=== PATIENT | male | born 1955 | race Caucasian/White ===

== ENCOUNTER 2016-08-19 06:45 | Day surgery (SDC) | payer MEDICARE, OTHER ==
[2016-08-17 09:20] VITALS: BMI 36.2
[~2016-08-19 06:45] MED LIST: LACTATED RINGERS 1,000 ML IV SCH; LIDOCAINE 1% 20 ML VIAL (10MG/ML) FOR IV START INTRADERMA PRN
[2016-08-19 07:09] VITALS: TEMP 97.4
[2016-08-19] MEDS ORDERED: LACTATED RINGERS 1,000 ML IV ONE (07:09)
[2016-08-19 07:21] LABS: Glucose,Whole Blood 120 mg/dL (75-99)
[2016-08-19] MEDS ORDERED: PROPOFOL 10 MG/ML 20 ML VIAL IV ONE (07:31)
--- NOTE | 2016-08-19 07:36 | P.GSHP ---
History of Present Illness H&P Date: 08/19/16 CHIEF COMPLAINT: Colon screen HISTORY OF PRESENT ILLNESS: The patient is a 61-year-old male who presents for colon screen. Lower endoscopy was offered for further evaluation and management. PAST MEDICAL HISTORY: Please see list. PAST SURGICAL HISTORY: Please see list. MEDICATIONS: Please see list. ALLERGIES: Please see list. SOCIAL HISTORY: No illicit drug use FAMILY HISTORY: No reports of Crohn disease or ulcerative colitis. REVIEW OF ORGAN SYSTEMS: CONSTITUTIONAL: No reports of fevers or chills. PHYSICAL EXAM: VITAL SIGNS: Stable GENERAL: Well-developed pleasant in no acute distress. HEENT: No scleral icterus. Extraocular movements grossly intact. Moist buccal mucosa. NECK: Supple without lymphadenopathy. CHEST: Unlabored respirations. Equal bilateral excursions. CARDIOVASCULAR: Regular rate and rhythm. Distal 2+ pulses. ABDOMEN: Soft, nontender, nondistended. MUSCULOSKELETAL: No clubbing, cyanosis, or edema. ASSESSMENT: 1. Colon screen. PLAN: 1. Recommend proceeding with a lower endoscopy Past Medical History Past Medical History: Cancer, Diabetes Mellitus Additional Past Medical History / Comment(s): states "blood sugars run between 120-130,was taking medx prior to gastric bypass-wt was 525lbs","low iron", prostate CA History of Any Multi-Drug Resistant Organisms: None Reported Past Surgical History: Bariatric Surgery, Cholecystectomy, Hernia Repair, Prostate Surgery Additional Past Surgical History / Comment(s): prostactectomy,gastric bypass, "tummy tuck",hernia repair lower abdomen Past Anesthesia/Blood Transfusion Reactions: No Reported Reaction Additional Past Anesthesia/Blood Transfusion Reaction / Comment(s): no hx blood transfusion. Past Psychological History: No Psychological Hx Reported Smoking Status: Never smoker Past Alcohol Use History: None Reported Past Drug Use History: Marijuana Additional Drug Use History / Comment(s): uses marijuana approx 3 times per week - Past Family History Mother Family Medical History: Congestive Heart Failure (CHF) Father Family Medical History: Myocardial Infarction ([place]) Additional Family Medical History / Comment(s): alcoholism Medications and Allergies Home Medications Medication Instructions Recorded Confirmed Type Cholecalciferol [Vitamin D3] 2,000 unit PO DAILY 08/17/16 08/19/16 History Cyanocobalamin [Vitamin B-12] 1,000 mcg PO DAILY 08/17/16 08/19/16 History Ferrous Sulfate [Feosol] 325 mg PO DAILY 08/17/16 08/19/16 History Multivitamins, Thera [Multivitamin 1 tab PO DAILY 08/17/16 08/19/16 History (formulary)] Allergies Allergy/AdvReac Type Severity Reaction Status Date / Time sulfamethoxazole Allergy Unknown Verified 08/19/16 07:03 [From Bactrim] trimethoprim [From Bactrim] Allergy Unknown Verified 08/19/16 07:03 Surgical - Exam Vital Signs Temp Pulse Resp BP Pulse Ox 97.4 F L 56 L 16 151/89 98 08/19/16 07:05 08/19/16 07:05 08/19/16 07:05 08/19/16 07:05 08/19/16 07:05 Results - Labs Abnormal Lab Results - Last 24 Hours (Table) 08/19/16 Range/Units 07:10 POC Glucose (mg/dL) 120 H (75-99) mg/dL
--- NOTE | 2016-08-19 07:53 | P.PCN ---
Date of Procedure: 08/19/16 Description of Procedure: PREOPERATIVE DIAGNOSIS: Colonoscopy screening. POSTOPERATIVE DIAGNOSIS: Colonoscopy screening. OPERATION: Colonoscopy to the ileocecal valve and appendiceal orifice. SURGEON: Yris Bell MD. ANESTHESIA: MAC. INDICATIONS: The patient is a 61-year-old male who presents for his first colonoscopy screening. Benefits and risks were described and informed consent was obtained. DESCRIPTION OF PROCEDURE: The patient had undergone Gatorade, MiraLAX and Dulcolax prep. He had been brought into the operating room and laid in the left lateral decubitus position. After adequate intravenous sedation, the rectum was examined with 2% lidocaine jelly. No external hemorrhoids were encountered. The rectal tone was within normal limits. No lesions were palpated in the rectal vault. An Olympus colonoscope was advanced until the ileocecal valve and appendiceal orifice were clearly viewed. The prep was excellent with clear visualization of the mucosal folds. The scope was removed with visualization of each mucosal fold. No scattered diverticulosis was encountered. No colonic polyps were found. No evidence of focal colitis was found. Retroflexion of the scope demonstrated grade 1 internal hemorrhoids without active bleeding or inflammation. The colon was desufflated. The patient had tolerated the procedure well. Withdrawal time was over 6 minutes. FINDINGS: Internal hemorrhoids, grade 1 No external prolapsed hemorrhoids. No arteriovenous malformations. No adenomatous polyps. No focal colitis. RECOMMENDATIONS: Lower endoscopy in 10 years, 2026 per screening guidelines; however down to 5 years with family history of colon polyps or cancer. Plan - Discharge Summary Discharge Medication List Cholecalciferol [Vitamin D3] 2,000 unit PO DAILY 08/17/16 [History] Cyanocobalamin [Vitamin B-12] 1,000 mcg PO DAILY 08/17/16 [History] Ferrous Sulfate [Feosol] 325 mg PO DAILY 08/17/16 [History] Multivitamins, Thera [Multivitamin (formulary)] 1 tab PO DAILY 08/17/16 [History ]
[2016-08-19 08:15] VITALS: PULSE 50; RESP 18
[2016-08-19 08:33] VITALS: BP 128/85
== END 2016-08-19 08:45 | disposition home or self-care (01) ==
LOC: ORWHC2ENDO 06:45
PROVIDERS: ATTEND Surgery Plastic and Reconstructive Surgery
DX: Z12.11 Encounter for screening for malignant neoplasm of colon (principal); K64.0 First degree hemorrhoids; E11.9 Type 2 diabetes mellitus without complications; Z98.84 Bariatric surgery status; Z85.46 Personal history of malignant neoplasm of prostate; Z79.899 Other long term (current) drug therapy; Z88.1 Allergy status to other antibiotic agents; Z88.2 Allergy status to sulfonamides
CPT/HCPCS: J2704; G0121

== ENCOUNTER 2017-04-24 13:43 | Emergency (ER) | payer MEDICARE, OTHER ==
--- NOTE | 2017-04-24 15:21 | ED ---
Eye Problem HPI - General Chief complaint: Eye Problems Stated complaint: Blurred vision Time Seen by Provider: 04/24/17 14:08 Source: patient Mode of arrival: ambulatory Limitations: no limitations - History of Present Illness Initial comments: 62-year-old male patient presents to the emergency department today for evaluation of floaters to the right eye, right-sided facial numbness, and sinus congestion. He states in addition to the floater he feels like his vision is blurred on the right. States that he also has decreased hearing to the right ear with this. Patient states he has had these symptoms for the past 8-9 days. States that he was treated with amoxicillin for sinus infection however he is not feeling any better. He denies any unilateral weakness. Denies any numbness or tingling to his limbs. States he does have some occasional dizziness. States that he does have pain behind the right eye, and a mild headache. He denies any fevers or chills with this. Denies any nausea or vomiting. Denies any chest pain or shortness of breath. Patient denies any recent rash, abdominal pain, diarrhea, constipation, back pain, numbness, tingling, dizziness , weakness, hematuria, dysuria, urinary urgency, urinary frequency, or any other complaints. - Related Data Home Medications Medication Instructions Recorded Confirmed Cholecalciferol [Vitamin D3] 1,000 unit PO DAILY 08/17/16 04/24/17 Cyanocobalamin [Vitamin B-12] 1,000 mcg PO DAILY 08/17/16 04/24/17 Multivitamins, Thera [Multivitamin 1 tab PO DAILY 08/17/16 04/24/17 (formulary)] Amoxicillin 875 mg PO Q12HR 04/24/17 04/24/17 Previous Rx's Medication Instructions Recorded Amoxic-Pot Clav 875-125Mg 1 tab PO Q12HR #20 tablet 04/24/17 [Augmentin 875-125] Allergies Allergy/AdvReac Type Severity Reaction Status Date / Time sulfamethoxazole Allergy Unknown Verified 04/24/17 14:36 [From Bactrim] trimethoprim [From Bactrim] Allergy Unknown Verified 04/24/17 14:36 Review of Systems ROS Statement: Those systems with pertinent positive or pertinent negative responses have been documented in the HPI. ROS Other: All systems not noted in ROS Statement are negative. Past Medical History Past Medical History: Cancer, Diabetes Mellitus Additional Past Medical History / Comment(s): states "blood sugars run between 120-130,was taking medx prior to gastric bypass-wt was 525lbs","low iron", prostate CA History of Any Multi-Drug Resistant Organisms: None Reported Past Surgical History: Bariatric Surgery, Cholecystectomy, Hernia Repair, Prostate Surgery Additional Past Surgical History / Comment(s): prostactectomy,gastric bypass, "tummy tuck",hernia repair lower abdomen, cataract surgery Past Anesthesia/Blood Transfusion Reactions: No Reported Reaction Additional Past Anesthesia/Blood Transfusion Reaction / Comment(s): no hx blood transfusion. Past Psychological History: No Psychological Hx Reported Smoking Status: Never smoker Past Alcohol Use History: None Reported Past Drug Use History: Marijuana - Past Family History Mother Family Medical History: Congestive Heart Failure (CHF) Father Family Medical History: Myocardial Infarction ([place]) Additional Family Medical History / Comment(s): alcoholism General Exam Limitations: no limitations General appearance: alert, in no apparent distress, other (This is a well- developed, well-nourished adult male patient in no acute distress. Vital signs upon presentation are temperature 96F, pulse 64, respirations 16, blood pressure 179/81, pulse ox 96% on room air.) Eye exam: Present: normal appearance, PERRL, EOMI, other (Globes are soft and equal with no proptosis. Pupils are equal and briskly reactive. No conjunctival injection. No periorbital edema or erythema.). Absent: scleral icterus, conjunctival injection, periorbital swelling, periorbital tenderness ENT exam: Present: normal exam, normal oropharynx, mucous membranes moist, TM's normal bilaterally Respiratory exam: Present: normal lung sounds bilaterally. Absent: respiratory distress, wheezes, rales, rhonchi, stridor Cardiovascular Exam: Present: regular rate, normal rhythm, normal heart sounds. Absent: systolic murmur, diastolic murmur, rubs, gallop, clicks GI/Abdominal exam: Present: soft, normal bowel sounds. Absent: distended, tenderness, guarding, rebound, rigid Neurological exam: Present: alert, oriented X3, CN II-XII intact Expanded Speech: Present: fluid speech Cranial nerves: EOM's Intact: Normal, Tongue Deviation: Normal, Nystagmus: Normal Cerebellar function: Finger to Nose: Normal Motor strength exam: RUE: 5, LUE: 5, RLE: 5, LLE: 5 Eye Response: (4) open spontaneously Motor Response: (6) obeys commands Verbal Response: (5) oriented Jay Total: 15 Psychiatric exam: Present: normal affect, normal mood Skin exam: Present: warm, dry, intact, normal color. Absent: rash Course Vital Signs 04/24/17 04/24/17 04/24/17 13:55 15:05 17:09 Temperature 96 F L 97.6 F Pulse Rate 64 55 L 64 Respiratory 16 18 16 Rate Blood Pressure 179/81 161/91 152/106 O2 Sat by Pulse 96 95 96 Oximetry Medical Decision Making - Medical Decision Making 63-year-old male patient presented to the emergency department today with complaints of visual disturbance of the right eye and sinus congestion. Physical examination was unremarkable. Patient was neurologically intact. CT of the brain and sinuses did show a mucosal thickening consistent with the incomplete treatment of sinusitis. Dr. Chacon my attending did perform an ultrasound of the right eye at bedside which showed no evidence of retinal detachment. Patient symptoms had been present for 8 days, he denied any flashing lights or bright spots. He'll be discharged home to follow-up with his instructor bus trolley and taxi. Patient did refuse to see our instructor bus trolley and taxi. He is given a prescription for Augmentin for continuation of treatment of his sinusitis. He is instructed to return here immediately for any new, worsening, or concerning symptoms. He verbalizes understanding and agrees with this plan. - Radiology Data Radiology results: report reviewed, image reviewed CT of the sinuses was obtained without contrast, report was reviewed in its entirety. Impression by Dr. Jones shows soft tissue attenuation is identified in the floor of both maxillary sinuses left greater than the right. Findings could be related to incomplete she had a sinus infection. CT of the brain without contrast report was reviewed in its entirety. Impression by Dr. Jones shows no acute intracranial abnormality. Disposition Clinical Impression: Vitreous floaters of right eye, Sinusitis, Vitreous hemorrhage Disposition: HOME SELF-CARE Condition: Good Instructions: Sinusitis (ED), Visual Floaters (ED) Additional Instructions: Follow-up with your instructor bus trolley and taxi as soon as possible. If you cannot get in there please call the instructor bus trolley and taxi below for an appointment. Complete antibiotic prescription in full. Return here immediately for any new, worsening , or concerning symptoms. Prescriptions: Amoxic-Pot Clav 875-125Mg [Augmentin 875-125] 1 tab PO Q12HR #20 tablet Referrals: Marcelo Del Rosario DO [Primary Care Provider] - 1-2 days Time of Disposition: 17:23
--- NOTE | 2017-04-24 15:37 | CT ---
EXAMINATION TYPE: CT brain wo con DATE OF EXAM: 04/24/2017 COMPARISON: NONE HISTORY: Right eye visual disturbance x 8-10 days. Treated for sinus infection with no improvement. N umbness around right eye. CT DLP: 1085.8 mGycm Automated exposure control for dose reduction was used. FINDINGS: No acute hemorrhage or major vessel territorial infarct is identified. There is no mass, mass effect, or midline shift. Ventricles and sulci are age-appropriate. There is slight asymmetric hypodensity o f the right frontal lobe compared to the left which is felt to be artifactual. Calvarium appears inta ct. The mastoid air cells are well aerated. The external auditory canals are well aerated. There is n checo septal deviation to the left with postintervention changes identified in the wall of the left ma xillary sinus medially. IMPRESSION: NO ACUTE INTRACRANIAL ABNORMALITY IS IDENTIFIED.
--- NOTE | 2017-04-24 15:40 | CT ---
EXAMINATION TYPE: CT sinus wo con DATE OF EXAM: 04/24/2017 COMPARISON: NONE HISTORY: Right eye visual disturbance x 8-10 days. Treated for sinus infection with no improvement. N umbness around right eye. CT DLP: 453 mGycm. Automated Exposure Control for Dose Reduction was Utilized. TECHNIQUE: CT scan of the sinuses is performed without contrast, axial images are obtained, coronal r eformatted images are also reviewed. FINDINGS: Frontal sinuses are relatively well aerated. There could be a small amount of mucosal thick ening noted. There is some mucosal thickening noted in the ethmoid sinuses. There is soft tissue atte nuation identified in the inferior aspect of both maxillary sinuses. There are no air-fluid levels id entified. There is nasal septal deviation to the left. The ostiomeatal complex is patent bilaterally on the coronal images. The orbits are grossly unremarkable on this nondedicated study. Visualized portion of mastoid air cells show no abnormal opacification. The globes are intact bilate rally. IMPRESSION: Soft tissue attenuation is identified in the floor of both maxillary sinuses left greater than right. Findings could be related to incomplete treatment of sinus infection.
[2017-04-24 17:10] VITALS: BP 152/106; PULSE 64; RESP 16; TEMP 97.6
== END 2017-04-24 17:46 | disposition home or self-care (01) ==
LOC: EC 13:43
DX: H43.391 Other vitreous opacities, right eye (principal); H43.11 Vitreous hemorrhage, right eye; J32.9 Chronic sinusitis, unspecified; H55.00 Unspecified nystagmus; R40.2412 Glasgow coma scale score 13-15, at arrival to emergency department; Z79.899 Other long term (current) drug therapy; Z88.1 Allergy status to other antibiotic agents; Z85.46 Personal history of malignant neoplasm of prostate; Z90.79 Acquired absence of other genital organ(s)
CPT/HCPCS: 70450; 70486; 99283

== ENCOUNTER → 2018-01-08 | Outpatient (CLI) | payer MEDICARE, OTHER ==
[2018-01-08 09:56] LABS: HCT 44.3 % (39.0-53.0); HGB 13.3 gm/dL (13.0-17.5); Hypochromasia Slight; MCH 28.1 pg (25.0-35.0); MCV 93.6 fL (80.0-100.0); Mean Platelet Volume 7.2; Platelet Count 393 k/uL (150-450); RBC 4.74 m/uL (4.30-5.90); RDW 13.9 % (11.5-15.5)
== END | disposition home or self-care (01) ==
LOC: LABPAT 08:59
PROVIDERS: ATTEND Surgery
DX: Z01.818 Encounter for other preprocedural examination (principal); Z01.812 Encounter for preprocedural laboratory examination; K40.90 Unilateral inguinal hernia, without obstruction or gangrene, not specified as recurrent
CPT/HCPCS: 36415; 85027; 93005

== ENCOUNTER 2018-01-12 08:15 | Day surgery (SDC) | payer MEDICARE, OTHER ==
[2018-01-07 11:08] VITALS: BMI 34.0
[~2018-01-12 08:15] MED LIST changes: +HEPARIN SODIUM,PORCINE 5,000 UNIT/ML 1 ML VIAL SQ ONE; +HYDROmorphone 0.5 MG/0.5 ML SYRINGE IVP PRN; -LACTATED RINGERS 1,000 ML IV SCH; -LIDOCAINE 1% 20 ML VIAL (10MG/ML) FOR IV START INTRADERMA PRN; +MORPHINE SULFATE 4 MG/ML SYRINGE IV PRN; +ONDANSETRON 4 MG/2 ML VIAL IVP ONE; +ONDANSETRON 4 MG/2 ML VIAL IVP PRN; +ceFAZolin IN SWFI 2 GM/20 ML SYRINGE IVP ONE
[2018-01-12] MEDS: LACTATED RINGERS 1,000 ML IV SCH (08:54)
[2018-01-12] MEDS ORDERED: LIDOCAINE 1% 20 ML VIAL (10MG/ML) FOR IV START SQ ONE (08:55)
[2018-01-12] MEDS ORDERED: MIDAZOLAM 2 MG/2 ML VIAL IV ONE (09:18)
--- NOTE | 2018-01-12 09:33 | P.GSHP ---
History of Present Illness H&P Date: 01/12/18 Chief Complaint: Left inguinal hernia This a 63-year-old male who presents today for laparoscopic robotic system repair of left inguinal hernia. Patient developed a tender mass left groin. Past Medical History Past Medical History: Cancer Additional Past Medical History / Comment(s): "low iron",prostate CA History of Any Multi-Drug Resistant Organisms: None Reported Past Surgical History: Bariatric Surgery, Cholecystectomy, Hernia Repair, Prostate Surgery Additional Past Surgical History / Comment(s): prostactectomy,gastric bypass, "tummy tuck",hernia repair lower abdomen, cataract surgery,. EGD, COLONOSCOPY Past Anesthesia/Blood Transfusion Reactions: No Reported Reaction Additional Past Anesthesia/Blood Transfusion Reaction / Comment(s): no hx blood transfusion. Smoking Status: Never smoker - Past Family History Mother Family Medical History: Congestive Heart Failure (CHF) Father Family Medical History: Myocardial Infarction ([place]) Additional Family Medical History / Comment(s): alcoholism Medications and Allergies Home Medications Medication Instructions Recorded Confirmed Type Multivitamins, Thera [Multivitamin 1 tab PO DAILY 08/17/16 01/12/18 History (formulary)] Cholecalciferol [Vitamin D3] 1,000 unit PO DAILY 01/07/18 01/12/18 History Cyanocobalamin [Vitamin B-12] 500 mcg PO DAILY 01/07/18 01/12/18 History Allergies Allergy/AdvReac Type Severity Reaction Status Date / Time sulfamethoxazole Allergy Swelling Verified 01/12/18 08:34 [From Bactrim] trimethoprim [From Bactrim] Allergy Swelling Verified 01/12/18 08:34 Surgical - Exam Vital Signs Temp Pulse Resp BP Pulse Ox 98.2 F 53 L 18 139/88 97 01/12/18 08:35 01/12/18 08:35 01/12/18 08:35 01/12/18 08:35 01/12/18 08:35 - General well developed, well nourished, no distress - Eyes PERRL - ENT normal pinna - Neck no masses - Respiratory normal expansion - Cardiovascular Rhythm: regular - Abdomen Multiple healed laparotomy incisions Abdomen: soft, non tender Hernia: inguinal (Left inguinal hernia) Assessment and Plan Assessment: Left internal hernia. We'll perform laparoscopic robotic system repair.
[2018-01-12] MEDS ORDERED: PROPOFOL 10 MG/ML 20 ML VIAL IV ONE (09:55)
[2018-01-12] MEDS ORDERED: fentaNYL (PF) 50 MCG/ML 2 ML AMP ONE (09:55)
[2018-01-12] MEDS ORDERED: LIDOCAINE 1% INJ 10MG/ML (20 ML MDV) ONE (09:55)
[2018-01-12] MEDS ORDERED: GLYCOPYRROLATE 0.2 MG/ML 2 ML VIAL ONE (09:55)
[2018-01-12] MEDS ORDERED: HYDROmorphone (PF) 1 MG/ML ONE (09:55)
[2018-01-12] MEDS ORDERED: SUCCINYLCHOLINE CHLORIDE VIAL 200 MG/10 ML VIAL IV ONE (09:55)
[2018-01-12] MEDS ORDERED: ROPIVACAINE 5 MG/ML 30 ML VIAL ONE (09:55)
[2018-01-12] MEDS ORDERED: ROCURONIUM BROMIDE 10 MG/ML 10 ML VIAL IV ONE (09:55)
[2018-01-12] MEDS ORDERED: NEOSTIGMINE 1 MG/ML 10 ML VIAL ONE (09:55)
[2018-01-12] MEDS ORDERED: BUPIVACAIN-EPI 0.25%-1:200,000 30 ML VIAL SQ ONE (10:40)
--- NOTE | 2018-01-12 11:16 | P.OP ---
Date of Procedure: 01/12/18 Preoperative Diagnosis: Left inguinal hernia Postoperative Diagnosis: Left inguinal hernia Procedure(s) Performed: Laparoscopic robotic-assisted repair of left inguinal hernia Excision of left cord lipoma Anesthesia: EMILY Surgeon: Heriberto Ham Estimated Blood Loss (ml): 5 Pathology: other (Left cord lipoma) Condition: stable Disposition: PACU Description of Procedure: The patient was placed on the operating table in the supine position. The patient received general anesthesia. The patient's abdomen was prepped and draped in usual sterile fashion. The skin was anesthetized 1% local Xylocaine at the incision sites. Using an 11 blade a skin incision was made at the umbilicus. The fascia was grasped with a [place] and then the peritoneal cavity was entered with the Veress needle. Position of the Veress needle was confirmed with a positive drop test. After adequate insufflation a 5 mm trocar was placed into the peritoneal cavity. The Laparoscope was placed the peritoneal cavity. And a robotic 8 mm trocar was placed in the right lateral position and then another 8 mm robotic trochars placed in the left lateral position. The original 5 mm trocar was exchanged for a 12 mm trocar. The patient was placed in reverse Trendelenburg and then the patient was docked to the robot. Next the peritoneum over top of the left inguinal hernia was incised and then using blunt and sharp dissection and electrocautery the hernia sac was dissected free from the floor of the inguinal canal. The hernia sac was completely reduced into the peritoneal cavity. A lipoma was dissected from the cord And then using the Pro cognos administrator mesh the hernia was repaired. The peritoneum was then sutured with 2-0V lock suture. The patient was then undocked the robot. The needle was withdrawn from the peritoneal cavity. The cord lipoma was withdrawn. The umbilical trocar site was closed with 0 Ethibond suture. The skin was closed interrupted 3-0 Monocryl suture. Dermabond dressing was applied. Patient was sent to recovery in stable condition.
[2018-01-12 11:35] VITALS: TEMP 97.7
[2018-01-12 11:55] LABS: Glucose,Whole Blood 147 mg/dL (75-99)
[2018-01-12] MEDS ORDERED: LACTATED RINGERS 1,000 ML IV ONE (12:13)
[2018-01-12] MEDS ORDERED: HYDROcodone/APAP 7.5-325MG 1 EACH TAB PO ONE (12:30)
[2018-01-12 13:09] VITALS: BP 142/84; PULSE 50; RESP 16
--- NOTE | 2018-01-14 06:02 | CDI ---
Date: 01/14/18 CDS/Last Putter Away Name: Concha Brantley Phone: If any questions, call Tennille Castañeda Satellite Technician at [phone] Patient Name: Familia Harrison Admit Date: 01/12/18 Discharge Date: 01/12/18 ATTENTION: The [facility] Coding Staff appreciate your assistance in clarifying documentation. Please respond to the clarification below the line at the bottom and electronically sign. The [facility] Coding staff will review the response and follow-up if needed. Please note: Queries are made part of the Legal Health Record. If you have any questions, please contact the Satellite Technician. Dear Dr. Ham, Please provide clarification for the TAP block list on the anesthesia record. Please clarify as to why it was given in addition to the unconscious sedation. Thank you for your kind consideration. MTDD
--- NOTE | 2018-01-14 07:02 | P.ONQ ---
Anesthesiology Proc Note - PNB - Peripheral Nerve Block Performed Bilateral Transversus Abdominis Single Time Out Performed: Yes Procedure Start Time: Procedure Stop Time: Indication: Acute Post-Operative Pain, Requested by physician Sedation Type: Sedate with meaningful contact maintained Preparation: Sterile Prep Position: Supine Needle Size: 50mm (2") Needle Gauge: 21 Technique: Ultrasound Injectate: 0.5% Ropivacaine (see comment for volume) (ropi .5% 15cc each side) Blood Aspirated: No Pain Paresthesia on Injection Noted: No Resistance on Injection: Normal Events: Uneventful and Well Tolerated
== END 2018-01-12 13:36 | disposition home or self-care (01) ==
LOC: OR 08:15
PROVIDERS: ATTEND Surgery
DX: K40.90 Unilateral inguinal hernia, without obstruction or gangrene, not specified as recurrent (principal); D17.6 Benign lipomatous neoplasm of spermatic cord; Z85.46 Personal history of malignant neoplasm of prostate; Z98.84 Bariatric surgery status; Z88.2 Allergy status to sulfonamides
CPT/HCPCS: 49650; 64488; 88304; C1781; J2250; J0330; J1644; J2710; J2405; J2001; J3010; J1170 ×2; J2795; J2704

== ENCOUNTER 2024-04-18 10:34 | Day surgery (SDC) | payer MEDICARE, OTHER ==
--- NOTE | 2024-04-09 08:48 | P.HPOR ---
History of Present Illness H&P Date: 04/09/24 Chief Complaint: Left knee pain The patient is a 69-year-old retired male who presents with left knee pain progressing over the past 6 months. He is having pain with any weightbearing activities. He notes stiffness and instability. He is tried medications in addition to injections without much relief. Review of Systems Per HPI Past Medical History Past Medical History: Cancer Additional Past Medical History / Comment(s): "low iron",prostate CA History of Any Multi-Drug Resistant Organisms: None Reported Past Surgical History: Bariatric Surgery, Cholecystectomy, Hernia Repair, Prostate Surgery Additional Past Surgical History / Comment(s): prostactectomy,gastric bypass, "tummy tuck",hernia repair lower abdomen, cataract surgery,. EGD, COLONOSCOPY Past Anesthesia/Blood Transfusion Reactions: No Reported Reaction Additional Past Anesthesia/Blood Transfusion Reaction / Comment(s): no hx blood transfusion. Past Psychological History: No Psychological Hx Reported Past Alcohol Use History: None Reported Past Drug Use History: Marijuana - Past Family History Mother Family Medical History: Congestive Heart Failure (CHF) Father Family Medical History: Myocardial Infarction ([place]) Additional Family Medical History / Comment(s): alcoholism Medications and Allergies Home Medications Medication Instructions Recorded Confirmed Type Multivitamins, Thera [Multivitamin 1 tab PO DAILY 08/17/16 01/12/18 History (formulary)] Cholecalciferol [Vitamin D3] 1,000 unit PO DAILY 01/07/18 01/12/18 History Cyanocobalamin [Vitamin B-12] 500 mcg PO DAILY 01/07/18 01/12/18 History Docusate [Colace] 100 mg PO BID #20 capsule 01/12/18 Rx HYDROcodone/APAP 7.5-325MG [[place] 1 tab PO Q4H PRN 3 Days #18 tab 01/12/18 Rx 7.5-325] Allergies Allergy/AdvReac Type Severity Reaction Status Date / Time sulfamethoxazole Allergy Swelling Verified 01/12/18 08:34 [From Bactrim] trimethoprim [From Bactrim] Allergy Swelling Verified 01/12/18 08:34 Physical Examination - Knee left Appearance: effusion Effusion grade: grade 1 Valgus alignment in stance: 10 degrees Tenderness with palpation: anterior, lateral Pain: throughout ROM Gait: limping ROM: extension: -15 degrees ROM: flexion: 110 degrees Crepitus with motion: Yes Strength: extension: 5/5 Strength: flexion: 5/5 Meniscal tests: lateral meniscal tests: positive, lateral joint line pain: positive Results The patient is a well-developed well-nourished male approximately 5 foot 11 205 pounds of mesomorphic habitus. HEENT exam is nonfocal, neck is supple. He has painless passive motion of his left hip. Straight leg raise is negative. He is tender about the lateral joint line of the left knee. Collaterals are stable, Alma's negative, Maciej's elicits lateral pain. His distal neurovascular exam appears intact in the left lower extremity. - Diagnostic results Knee x-ray: image reviewed (3 views of the left knee obtained the office show severe lateral and patellofemoral compartment osteoarthrosis with subchondral sclerosis and [id number] changes.) Assessment and Plan Assessment: Left knee severe lateral and patellofemoral compartment osteoarthrosis Plan: I talked to the patient at length regarding his condition along with treatment options. At this point he is quite symptomatic having pain and mechanical symptoms related to his left knee osteoarthrosis despite conservative measures. After a thorough discussion he opts to proceed with surgery. We will plan to proceed with left total knee arthroplasty. Risks and benefits were discussed at length in layman's terms. We will institute DVT prophylaxis postoperatively.
[~2024-04-18 10:34] MED LIST changes: -HEPARIN SODIUM,PORCINE 5,000 UNIT/ML 1 ML VIAL SQ ONE; +LIDOCAINE 1% (10MG/ML) FOR IV START INTRADERMA PRN; -MORPHINE SULFATE 4 MG/ML SYRINGE IV PRN; -ONDANSETRON 4 MG/2 ML VIAL IVP ONE; -ONDANSETRON 4 MG/2 ML VIAL IVP PRN; +TRANEXAMIC 1,000 MG/100ML-NACL 1,000 MG in SALINE 1 100ML.BAG IVPB PRN; -ceFAZolin IN SWFI 2 GM/20 ML SYRINGE IVP ONE
[2024-04-18] MEDS: IV FLUID CONTINUATION 1,000 ML IV ONE (11:41)
[2024-04-18 11:55] LABS: Glucose,Whole Blood 146 mg/dL (70-110)
[2024-04-18] MEDS: DEXAMETHASONE SOD PHOSPHATE 4 MG/ML 1 ML VIAL IV ONE (12:01)
[2024-04-18] MEDS: MELOXICAM 7.5 MG TAB PO PRN (12:02)
[2024-04-18] MEDS: ONDANSETRON 4 MG/2 ML VIAL IVP ONE (12:02)
[2024-04-18] MEDS: ACETAMINOPHEN TAB 500 MG TAB PO PRN (12:03)
[2024-04-18] MEDS: MIDAZOLAM 2 MG/2 ML VIAL IV ONE (12:06)
[2024-04-18] MEDS: LACTATED RINGERS 1,000 ML IV SCH (12:32)
[2024-04-18] MEDS ORDERED: DEXAMETHASONE SOD PHOSPHATE 4 MG/ML 1 ML VIAL ONE (12:53)
[2024-04-18] MEDS ORDERED: ROPIVACAINE 5 MG/ML 30 ML VIAL ONE (12:53)
[2024-04-18] MEDS ORDERED: SODIUM CHLORIDE 0.9% (PF) 10 ML VIAL ONE (12:53)
[2024-04-18] MEDS ORDERED: MIDAZOLAM 2 MG/2 ML VIAL ONE (12:53)
[2024-04-18] MEDS ORDERED: PROPOFOL 10 MG/ML 20 ML VIAL IV ONE (12:53)
[2024-04-18] MEDS ORDERED: TRANEXAMIC 1,000 MG/100ML-NACL PREMIX BAG ONE (12:53)
[2024-04-18] MEDS ORDERED: ePHEDrine 50 MG/ML 1 ML VIAL ONE (12:53)
[2024-04-18] MEDS: ceFAZolin 1,000 MG in SODIUM CHLORIDE 0.9% 1,000 ML IRRIGATION ONE (13:31)
[2024-04-18] MEDS: LACTATED RINGERS 1,000 ML IV ONE (14:00)
[2024-04-18] MEDS ORDERED: MAGNESIUM HYDROXIDE 2,400 MG/30 ML CUP PO PRN (14:38)
[2024-04-18] MEDS ORDERED: NALOXONE 0.4 MG/ML 1 ML VIAL IV PRN (14:38)
[2024-04-18] MEDS ORDERED: HYDROmorphone 0.5 MG/0.5 ML SYRINGE IVP PRN ×2 (14:38)
[2024-04-18] MEDS ORDERED: ONDANSETRON 4 MG/2 ML VIAL IVP PRN (14:38)
[2024-04-18] MEDS ORDERED: HYDROcodone/APAP 5-325MG 1 EACH TAB PO PRN (14:38)
[2024-04-18] MEDS ORDERED: hydrOXYzine pamoate 25 MG CAP PO PRN (14:38)
--- NOTE | 2024-04-18 15:03 | P.OP ---
Date of Procedure: 04/18/24 Preoperative Diagnosis: Left knee severe tricompartmental osteoarthrosis Postoperative Diagnosis: Same Procedure(s) Performed: Left total knee arthroplastycementedposterior stabilized Implants: DePuy attune size 8 cemented femoral component, size 8 cemented tibial component, 10 mm articular surface, 41 mm cemented patellar component. This is a posterior stabilized implant. Anesthesia: regional, spinal Surgeon: Osman Jackson Soft Work Cigar Machine Operator #1: Ronak De Los Santos Estimated Blood Loss (ml): 50 Pathology: none sent Condition: stable Disposition: PACU Indications for Procedure: The patient is a 69-year-old male who presents with progressive left knee pain secondary to osteoarthrosis despite conservative measures. A discussion of the risks and benefits of operative intervention versus continued conservative measures was made with the patient. He opted to proceed with surgery. Operative risks include infection, neurovascular injury, development of blood clots, fracture, possible component loosening/failure and possible need for subsequent procedures was discussed. Informed consent was obtained. Operative Findings: As below Description of Procedure: The patient was brought to the operating room, and after induction of spinal anesthesia the left lower extremity was prepped and draped in a normal fashion. The tourniquet was inflated to 270 mm of mercury. A longitudinal incision extending 3 finger breaths above the superior pole of patella extending to the medial aspect the tibial tubercle was then made. The skin and subcutaneous tissues were divided sharply. Electrocautery was used for hemostasis. A medial parapatellar arthrotomy was performed. The medial soft tissues to include the superficial and deep portions of the medial collateral ligament were elevated subperiosteally. The patella was everted. A portion of the retropatellar fat pad was excised sharply. The anterior cruciate ligament was sacrificed. Blunt retractors were placed. A starting hole was made in the distal femur 1 cm anterior to the posterior cruciate ligament origin. An intramedullary femoral guide was then inserted planning on 5 valgus distal cut with 9 mm distal resection. The cutting block was pinned in place. The distal cut was then made. The posterior referencing sizing guide was utilized. I felt size 8 was most appropriate. 3 of external rotation was built into the system and verified off the trans-epicondylar axis and the posterior condyles. The cutting block was pinned in place. The anterior, posterior, and chamfer cuts then made. Bone fragments were removed. The intercondylar guide was placed and the notch cut was made with a sagittal saw. The bone block was removed in one fragment. The trial component was then placed. There is good anterior to posterior and medial to lateral fit. The distal peg holes were drilled. The trial component was removed. Attention was then paid towards preparing the proximal tibia. An extra medullary guide was utilized in line with the tibial shaft and second metatarsal distally. I planned on 8 mm resection from the medial compartment. The cutting block was pinned in place. The proximal tibial cut was then made. The bone was removed in one fragment. The remnants of the medial and lateral menisci were excised at the capsular junction with electrocautery. The tibia sized most appropriately at size 8. The trial femoral and tibial components were placed along with a 10 mm articular surface. I was able to obtain full flexion and extension with internal and external rotation. After several flexion and extension cycles, the tibial rotation was marked with electrocautery line with the medial one third of the tibial tubercle. Attention was then paid towards preparing the patella. A patella reamer was utilized taking stem to 14 mm of bone stock. A good flush cut was made. The patella sized most appropriately at 41 mm. The peg holes were drilled. The trial components placed. I had good patellofemoral tracking with no hands technique. The trial components were then removed. The tibia was prepared in the appropriate rotation with appropriate drill and keel punch. The posterior osteophytes were removed with a curved osteotome. The flexion and extension gaps were checked and felt to be symmetric at 10 mm. A trial components were then removed. The bony surfaces were prepared with pulsatile lavage and dried. The tibial component was then cemented place was fully seated. Excess cement was removed. The femoral component cemented place and was fully seated. Excess c ement was removed. The trial 10 mm articular surface was placed and the knee was put in full extension. The patella component was cemented place. After the cement had sufficiently hardened, the knee was again taken through a range of motion. Again I was able to obtain full flexion and extension with varus and valgus stress. The trial 10 mm articular surface was removed and the final one inserted. This was fully seated. Care was taken to avoid any soft tissue interposition. Pulsatile lavage was again utilized. The medial parapatellar arthrotomy was closed with #2 Ethibond suture. The tourniquet was deflated with approximately 60 minutes total tourniquet time. Final hemostasis was obtained with the cautery. There was minimal bleeding therefore a deep drain was not placed. The subcutaneous tissues were reapproximated with interrupted 2-0 Vicryl sutures. The skin was reapproximated with 3-0 subcuticular strata fix suture. Skin tape and adhesive was applied. A sterile dressing was applied. The patient was awoken from sedation and transferred to recovery room in good condition. Blood loss was estimated at 50 mL. No complications were incurred. Sponge and needle counts were correct at the end of the case. Ronak ROSE assisted during the major components of this case to include exposure, bone resection, implantation, and closure.
[2024-04-18] MEDS: ROPIVACAINE 1,100 MG, SODIUM CHLORIDE 0.9% 500 ML 330 ML, EMPTY PAIN BALL 1 EACH MISCELLANE PRN (15:33)
--- NOTE | 2024-04-18 15:35 | XR ---
EXAMINATION TYPE: XR knee limited 2 views LT DATE OF EXAM: 04/18/2024 COMPARISON: NONE CLINICAL INDICATION: Male, 69 years old with history of Evaluation for Postop abnormality and alignme nt; FINDINGS: Images show placement of left total knee arthroplasty. Both distal femoral and proximal tibial compon ents of the prosthesis appear well seated without periprosthetic fracture. Alignment grossly anatomic . Anterior soft tissue swelling with scattered soft tissue air as well as intra-articular air related to recent operation. IMPRESSION: Uncomplicated postoperative appearance left total knee arthroplasty. [facility], , 04/18/2024 3:33 PM
[2024-04-18 16:42] LABS: Glucose,Whole Blood 154 mg/dL (70-110)
--- NOTE | 2024-04-18 17:56 | P.ANPRN ---
Procedure Note - Anesthesia - Nerve Block Performed Left Adductor Canal Infusion Time Out Performed: Yes (1205) Date of Procedure: 04/18/24 Location of Patient: PreOp Indication: Acute Post-Operative Pain, Analgesia, Dx/Pain Location (left knee), Requested by Surgeon Specifically requested for management of pain by DrPhilippe: Osman Jackson Sedation Type: Sedate with meaningful contact maintained Preparation: Sterile Prep, Sterile Dressing Position: Supine Catheter: Indwelling Needle Types: Pajunk Needle Gauge: 18 Ultrasound used to visualize needle placement: Yes Ultrasound used to observe medication spread: Yes Injectate: 0.5% Ropivacaine (see comment for volume) (to 20 mL +10 mL of normal saline +4 mg of Decadron) Blood Aspirated: No Pain Paresthesia on Injection Noted: No Resistance on Injection: Normal Image Stored and Saved: Yes Events: Uneventful and Well Tolerated Left iPack Single Time Out Performed: Yes Date of Procedure: 04/18/24 Indication: Acute Post-Operative Pain, Analgesia, Dx/Pain Location (left knee), Requested by Surgeon Specifically requested for management of pain by DrPhilippe: Osman Jackson Sedation Type: Sedate with meaningful contact maintained Position: Right Lateral Catheter: None Needle Types: Pajunk Needle Gauge: 21 Ultrasound used to visualize needle placement: Yes Ultrasound used to observe medication spread: Yes Injectate: 0.5% Ropivacaine (see comment for volume) (20 mL +10 mL of normal saline) Blood Aspirated: No Pain Paresthesia on Injection Noted: No Resistance on Injection: Normal Image Stored and Saved: Yes Events: Uneventful and Well Tolerated
[2024-04-18] MEDS: droPERidol 5 MG/2 ML VIAL IVP ONE (18:39)
--- NOTE | 2024-04-18 19:45 | P.CONS ---
History of Present Illness - Reason for Consult Consult date: 04/18/24 Medical management Requesting physician: Osman Jackson - Chief Complaint Left knee surgery - History of Present Illness This is a pleasant 69-year-old patient Dr. Del Rosario. Chronic medical conditions include diet-controlled diabetes, hard of hearing wears hearing aids, osteoarthritis. Patient is undergone left total knee arthroplasty. Postprocedure pain is co ntrolled. No nausea vomiting. Denies any cardiac history. History of prostate cancer and gastric bypass in 2000. Prior to that patient's close to 500 pounds. Review of systems: GEN.: None EYES: None HEENT: Hard of hearing NECK: None RESPIRATORY: None CARDIOVASCULAR: None GASTROINTESTINAL: None GENITOURINARY: None MUSCULOSKELETAL: Joint pains] LYMPHATICS: None HEMATOLOGICAL: None PSYCHIATRY: None NEUROLOGICAL: None Social history: . No smoking. No alcohol. Physical examination: VITAL SIGNS: Afebrile, 80, 16, 137 x 70, 98% room air GENERAL: BMI 28.6,. Reclining in bed EYES: Pupils equal. Conjunctiva juni l. HEENT: External appearance of nose and ears normal, oral cavity grossly normal. Hard of hearing NECK: JVD not raised; masses not palpable. HEART: First and second heart sounds are normal; no edema. LUNGS: Respiratory rate normal; clear to auscultation. ABDOMEN: Soft, nontender, liver spleen not palpable, no masses palpable. PSYCH: Alert and oriented x3; mood and affect juni l. MUSCULOSKELETAL:No Clubbing/cyanosis;muscles-grossly intact. OA. Dressing over the left knee NEUROLOGICAL: Cranial nerves grossly intact; no facial asymmetry, power and s ensation grossly intact. LYMPHATICS: No lymph nodes palpable in the axilla and neck INVESTIGATIONS, reviewed in the clinical context: Accu-Cheks: 146, 154 Assessment plan: -Left total knee arthroplasty. IV cefazolin for infection prophylaxis. Decadron 1 dose given. DVT prophylaxis per surgical team -Diabetes mellitus type 2, diet controlled Accu-Cheks with sliding scale insulin -Primary osteoarthritis Pain medication as needed -Chronic hard of hearing Has hearing aids -Full code Care was discussed with patient. Questions answered. Thank you Dr. Jackson Past Medical History Past Medical History: Cancer, Diabetes Mellitus, Hearing Disorder / Deafness Additional Past Medical History / Comment(s): prostate CA, diet controlled diabetes, wears hearing aids History of Any Multi-Drug Resistant Organisms: None Reported Past Surgical History: Bariatric Surgery, Cholecystectomy, Hernia Repair, Prostate Surgery Additional Past Surgical History / Comment(s): prostactectomy, gastric bypass, "tummy tuck", hernia repair lower abdomen, cataract surgery,. EGD, COLONOSCOPY Past Anesthesia/Blood Transfusion Reactions: No Reported Reaction Additional Past Anesthesia/Blood Transfusion Reaction / Comm: no hx blood transfusion. Smoking Status: Never smoker - Past Family History Mother Family Medical History: Congestive Heart Failure (CHF) Father Family Medical History: Myocardial Infarction ([place]) Additional Family Medical History / Comment(s): alcoholism Medications and Allergies Home Medications Medication Instructions Recorded Confirmed Type Multivitamins, Thera [Multivitamin 1 tab PO DAILY 08/17/16 04/13/24 History (formulary)] Cholecalciferol [Vitamin D3] 1,000 unit PO DAILY 01/07/18 04/13/24 History Cyanocobalamin [Vitamin B-12] 500 mcg PO DAILY 01/07/18 04/13/24 History Allergies Allergy/AdvReac Type Severity Reaction Status Date / Time sulfamethoxazole Allergy Swelling Verified 04/13/24 15:50 [From Bactrim] trimethoprim [From Bactrim] Allergy Swelling Verified 04/13/24 15:50 Physical Exam Vitals: Vital Signs Temp Pulse Resp BP Pulse Ox 04/18/24 18:31 80 16 137/70 98 04/18/24 18:01 77 16 125/66 96 04/18/24 17:31 67 16 137/75 98 04/18/24 17:01 60 14 123/63 96 04/18/24 16:46 63 14 125/61 97 04/18/24 16:31 56 L 14 127/66 97 04/18/24 16:16 58 L 12 123/58 97 04/18/24 16:01 56 L 12 125/63 95 04/18/24 15:46 54 L 14 131/60 97 04/18/24 15:31 56 L 14 133/63 97 04/18/24 15:16 69 14 127/69 100 04/18/24 15:01 97.9 F 64 16 139/66 99 04/18/24 12:05 63 18 161/88 97 04/18/24 11:42 98 F 55 L 18 170/76 97 Intake and Output 01/07/25 01/07/25 01/07/25 06:59 14:59 22:59 Intake Total 1351 600 Output Total 50 Balance 1301 600 Intake: IV 1351 600 Output: Estimated Blood Loss 50 Other: Weight 93 kg Results Labs: Abnormal Lab Results - Last 24 Hours (Table) 04/18/24 04/18/24 Range/Units 11:38 16:40 POC Glucose (mg/dL) 146 H 154 H (70-110) mg/dL
[2024-04-18] MEDS: HYDROcodone/APAP 7.5-325MG 1 EACH TAB PO PRN (20:03)
[2024-04-18] MEDS: SENNOSIDES-DOCUSATE SODIUM 1 EACH TAB PO SCH (20:03)
[2024-04-19] MEDS: RIVAROXABAN 10 MG TAB PO SCH (08:00)
[2024-04-19] MEDS: MULTIVITAMINS, THERA 1 EACH TAB PO SCH (08:00)
[2024-04-19] MEDS: CHOLECALCIFEROL 25 MCG (1000 IU) TABLET PO SCH (08:00)
[2024-04-19] MEDS: CYANOCOBALAMIN 500 MCG TAB PO SCH (08:01)
[2024-04-19 08:24] VITALS: BP 135/76; PULSE 71; RESP 16; TEMP 97.4
[2024-04-19 08:24] LABS: Basophils # (A) 0.03 X 10*3/uL (0.00-0.10); Basophils % (A) 0.3 %; Eosinophils # (A) 0 X 10*3/uL (0.04-0.35); Eosinophils % (A) 0 %; HCT 35.1 % (39.6-50.0); HGB 11.5 g/dL (13.0-17.0); Lymphocytes # (A) 1.13 X 10*3/uL (0.90-5.00); Lymphocytes % (A) 11.6 %; MCH 31.2 pg (27.0-32.0); MCHC 32.8 g/dL (32.0-37.0); MCV 95.1 FL (80.0-97.0); Mean Platelet Volume 10.2 FL (9.5-12.2); Monocytes # (A) 1.01 X 10*3/uL (0.20-1.00); Monocytes % (A) 10.3 %; NRBC Per 100 WBC 0 X 10*3/uL (0.00-0.01); Neutrophils # (A) 7.55 X 10*3/uL (1.80-7.70); Neutrophils % (A) 77.4 %; Platelet Count 232 X 10*3/uL (140-440); RBC 3.69 X 10*6/uL (4.40-5.60); RDW 13.4 % (11.5-14.5); WBC 9.76 X 10*3/uL (4.50-10.00)
--- NOTE | 2024-04-19 11:50 | P.PN ---
Subjective Progress Note Date: 04/19/24 Principal diagnosis: s/p left total knee arthroplasty Patient is evaluated at bedside, he is resting in his hospital chair. Patient is doing rather well at this time, his pain is well-controlled. He denies any headaches, lightheadedness, shortness of breath or chest pain. He has been urinating with no difficulties. He did very well with physical therapy. Objective - Vital Signs Vital signs: Vital Signs Temp 97.4 F L 04/19/24 07:29 Pulse 71 04/19/24 07:29 Resp 16 04/19/24 07:29 BP 135/76 04/19/24 07:29 Pulse Ox 99 04/19/24 07:29 FiO2 Intake & Output 04/18/24 04/19/24 04/19/24 18:59 06:59 18:59 Intake Total 1950 480 Output Total 50 Balance 1900 480 Weight 93 kg 93 kg Intake: IV 1950 Oral 480 Output: Estimated Blood Loss 50 Other: Voiding Method Toilet # Voids 2 - Exam Left lower extremity: Incision is clean, dry, and intact. The exofin fusion tape is in good condi tion. There is minimal soft tissue swelling and ecchymosis surrounding the medial and lateral aspects of the incision. Calf is soft, no tenderness with palpation. Plantar flexion, dorsiflexion, EHL, FHL are intact. Sensory exam to light touch throughout the extremity is intact, dorsal pedis pulses 2+. - Labs CBC & Chem 7: 04/19/24 03:33 Labs: Abnormal Lab Results - Last 24 Hours (Table) 04/18/24 04/18/24 04/19/24 Range/Units 11:38 16:40 03:33 RBC 3.69 L (4.40-5.60) X 10*6/uL Hgb 11.5 L (13.0-17.0) g/dL Hct 35.1 L (39.6-50.0) % Monocytes # 1.01 H (0.20-1.00) X 10*3/uL Eosinophils # 0 L (0.04-0.35) X 10*3/uL POC Glucose (mg/dL) 146 H 154 H (70-110) mg/dL Assessment and Plan Assessment: Postoperative day #1 status post left total knee arthroplasty Plan: Pain control, plan for discharge home on oral pain medication and stool softeners DVT prophylaxis, aspirin 325 mg daily for at least 2 weeks Wound care instructions discussed, this to include On-Q pain catheter removal and showering Home PT/nursing after discharge Medical recommendations appreciated Discharge planning: Patient stable for discharge home today Time with Patient: Less than 30
--- NOTE | 2024-04-19 11:54 | P.DS ---
Providers Date of admission: 04/18/2024 Expected date of discharge: 04/19/24 Attending physician: Osman Jackson Consults: 04/18/24 14:38 Consult Physician Routine Consulting Provider: Wally Elkins Consult Reason/Comments: medical management s/p left total knee arthroplasty Do you want consulting provider notified?: Yes Primary care physician: [facility] Course: Date of admission: 04/18/2024 Date of discharge: 04/19/2024 Admission diagnosis: Status post left total knee arthroplasty Discharge diagnosis: Same Attending physician: Dr. Jackson Surgical procedures: Left total knee arthroplasty Brief history: Patient is a 69-year-old male with a history of progressive primary left knee osteoarthritis. At this point patient has failed conservative treatment measures and has opted to proceed with a elective left total knee arthroplasty. Hospital course: Details of patient's surgery can be found in operative report. Patient tolerated the procedure well and was subsequently transported to orthopedic floor. Patient's orthopeidc and medical care was provided daily. Patient had daily laboratory tests performed for evaluation of overall blood counts. Patient had daily physical therapy to include strengthening range of motion as well as education with walker ambulation. Patient was treated with Xarelto for their postoperative DVT prophylaxis during their inpatient stay. Patient was noted to have a relatively uneventful postoperative course. Patient reported satisfactory pain control with oral pain medications by postoperative day 0. Patient showed satisfactory progress with physical therapy. Patient moved steadily through the program and had no difficulty meeting the goals by postoperative day 1. Given patient's otherwise satisfactory course and having met physical therapy goals, plan is to discharge patient home on postoperative day 1. Discharge condition/disposition: Patient will be discharged home in stable condition. Discharge medications: Instructions are given on resumption of patient's normal daily medications per primary care recommendation, in addition patient will be prescribed [place] 7.5 mg / 325 mg, senna S, aspirin 325 mg. Discharge instructions: 1. Wound care and infection precautions, keep incision dry and covered while showering, no lotions, creams, moisturizers. No soaking, tubs, pools, hottubs. Do not scrub over the incision. 2. Weight-bear as tolerated with walker / cane until follow-up. 3. Ice and elevate when necessary. Do not exceed 20 minutes per hour with ice pack. 4. Utilize compression sleeve until seen at first follow up appointment. 5. Visiting nursing care. 6. Home physical therapy including home CPM. 7. Pain meds and anticoagulants per prescription. 8. Pain medication has potential to cause constipation. Increase oral fluid and fiber intake. Contact primary care provider if you have not had a bowel movement within 48 hours after discharge 9. No anti-inflammatory medication until discussed at first post operative visit, this including Motrin, Aleve, Mobic, Diclofenac. 10. Follow up in office at 2 weeks postop with Ovidio Hurt PA-C/Ronak Lamar 11. Follow up with your primary care doctor 7-10 days after discharge. 12. Contact [facility] with any questions, . Procedures: Left total knee arthroplasty Patient Condition at Discharge: Good Plan - Discharge Summary Discharge Rx Participant: Yes New Discharge Prescriptions: New Aspirin 325 mg PO DAILY #30 tab Sennosides/Docusate Sodium [Senna-S 8.6-50 mg Tablet] 2 each PO DAILY PRN #30 tablet PRN Reason: Constipation HYDROcodone/APAP 7.5-325MG [[place] 7.5] 1 each PO Q6HR PRN #28 tab PRN Reason: Pain No Action Multivitamins, Thera [Multivitamin (formulary)] 1 tab PO DAILY Cyanocobalamin [Vitamin B-12] 500 mcg PO DAILY Cholecalciferol [Vitamin D3] 1,000 unit PO DAILY Discharge Medication List Multivitamins, Thera [Multivitamin (formulary)] 1 tab PO DAILY 08/17/16 [History] Cholecalciferol [Vitamin D3] 1,000 unit PO DAILY 01/07/18 [History] Cyanocobalamin [Vitamin B-12] 500 mcg PO DAILY 01/07/18 [History] Aspirin 325 mg PO DAILY #30 tab 04/19/24 [Rx] HYDROcodone/APAP 7.5-325MG [[place] 7.5] 1 each PO Q6HR PRN #28 tab 04/19/24 [Rx] Sennosides/Docusate Sodium [Senna-S 8.6-50 mg Tablet] 2 each PO DAILY PRN #30 tablet 04/19/24 [Rx] Follow up Appointment(s)/Referral(s): Ronak De Los Santos, PAC [PHYSICIAN NIB FINISHER] - [address] [facility],Equipment [NON-STAFF] - As Needed (Continuous Passive Motion knee machine and walker) [facility], [NON-STAFF] - As Needed Patient Instructions/Handouts: Knee Replacement (GEN) Activity/Diet/Wound Care/Special Instructions: Orthopedic Discharge Instructions: 1. Wound care and infection precautions, keep incision dry and covered while showering, no lotions, creams, moisturizers. No soaking, pools, hot tubs. Do not scrub over incision. 2. Weight-bear as tolerated with walker / cane until follow-up. 3. Ice and elevate when necessary. Do not exceed 20 minutes per hour with ice pack. 4. Utilize compression sleeve until seen at first follow up appointment. 5. Pain meds and anticoagulants per prescription. 6. Pain medication has potential to cause constipation. Increase oral fluid and fiber intake. Contact primary care provider if you have not had a bowel movement within 48 hours after discharge. 7. No anti-inflammatory medication until discussed at first post operative visit, this including Motrin, Aleve, Mobic, Diclofenac. 8. Follow up in office at 2 weeks postop with Ovidio Hurt PA-C / Ronak De Los Santos PA-C 9. Follow up with your primary care doctor 7-10 days after discharge. 10. Contact [facility] with any questions, . Keep incision clean, dry, intact. While showering, cover dressing with Saran wrap. Keep dressing on until follow-up appointment in office in 2 weeks. Discharge Disposition: HOME WITH HOME HEALTH SERVICES
[2024-04-19 12:06] LABS: Glucose,Whole Blood 204 mg/dL (70-110)
--- NOTE | 2024-04-19 19:52 | P.PN ---
Progress Note - Text Progress Note Date: 04/19/24 This is a pleasant 69-year-old patient Dr. Del Rosario. Chronic medical conditions include diet-controlled diabetes, hard of hearing wears hearing aids, osteoarthritis. Patient is undergone left total knee arthroplasty. Postprocedure pain is controlled. No nausea vomiting. Denies any cardiac history. History of prostate cancer and gastric bypass in 2000. Prior to that patient's close to 500 pounds. April 19: Up in the chair. Did ambulate. Pain well-controlled. Did tolerate diet. No nausea vomiting. Ferrous sulfate added for slight drop in hemoglobin. Questions answered. Social history: . No smoking. No alcohol. Physical examination: VITAL SIGNS: 97.4, 71, 16, 135 x 76, 99% room air GENERAL: BMI 28.6,. Up in a recliner, comfortable EYES: Pupils equal. Conjunctiva juni l. HEENT: External appearance of nose and ears normal, oral cavity grossly normal. Hard of hearing NECK: JVD not raised; masses not palpable. HEART: First and second heart sounds are normal; no edema. LUNGS: Respiratory rate normal; clear to auscultation. ABDOMEN: Soft, nontender, liver spleen not palpable, no masses palpable. PSYCH: Alert and oriented x3; mood and affect juni l. MUSCULOSKELETAL:No Clubbing/cyanosis;muscles-grossly intact. OA. Dressing over the left knee INVESTIGATIONS, reviewed in the clinical context: April 19: White count 9.7 hemoglobin 11.5 platelets 232 Accu-Cheks: 146, 154 Assessment plan: -Left total knee arthroplasty. IV cefazolin for infection prophylaxis. Decadron 1 dose given. DVT prophylaxis per surgical team-aspirin -Diabetes mellitus type 2, diet controlled Accu-Cheks with sliding scale insulin -Acute postprocedure blood loss anemia, as expected from surgery Ferrous sulfate added -Primary osteoarthritis Pain medication as needed -Chronic hard of hearing Has hearing aids -Full code Cussed with the patient. Follow-up with PCP. Thank you Dr. Jackson Past Medical History Past Medical History: Cancer, Diabetes Mellitus, Hearing Disorder / Deafness Additional Past Medical History / Comment(s): prostate CA, diet controlled diabetes, wears hearing aids History of Any Multi-Drug Resistant Organisms: None Reported Past Surgical History: Bariatric Surgery, Cholecystectomy, Hernia Repair, Prostate Surgery Additional Past Surgical History / Comment(s): prostactectomy, gastric bypass, "tummy tuck", hernia repair lower abdomen, cataract surgery,. EGD, COLONOSCOPY Past Anesthesia/Blood Transfusion Reactions: No Reported Reaction Additional Past Anesthesia/Blood Transfusion Reaction / Comm: no hx blood transfusion. Smoking Status: Never smoker
== END 2024-04-19 13:21 | disposition home health service (06) ==
LOC: OR 10:34 → 4SSUR 14:55 → OR 04-19 13:21
PROVIDERS: ATTEND Orthopaedic Surgery
DX: M17.12 Unilateral primary osteoarthritis, left knee (principal); E11.9 Type 2 diabetes mellitus without complications; G89.18 Other acute postprocedural pain; Z79.82 Long term (current) use of aspirin; H91.90 Unspecified hearing loss, unspecified ear; D62 Acute posthemorrhagic anemia; Z85.46 Personal history of malignant neoplasm of prostate; Z88.1 Allergy status to other antibiotic agents; Z88.2 Allergy status to sulfonamides; Z90.49 Acquired absence of other specified parts of digestive tract; Z98.890 Other specified postprocedural states; Z98.84 Bariatric surgery status; Z79.899 Other long term (current) drug therapy
CPT/HCPCS: 97161; 64999; 64448; 85025; 73560; 27447; C1713 ×2; C1776; C1751; J2250; J1100; J0690 ×3; J2405; J2795

== ENCOUNTER → 2024-04-26 | Outpatient (CLI) | payer MEDICARE, OTHER ==
--- NOTE | 2024-04-26 16:24 | US ---
EXAMINATION TYPE: US venous doppler duplex LE LT DATE OF EXAM: 04/26/2024 3:52 PM COMPARISON: NONE CLINICAL INDICATION: Male, 69 years old with history of LLE; R22.42, LOCALIZED SWELLING;LEFT LOWER LI MB; Left knee replacement 1 week ago. left leg edema, Pain TECHNIQUE: The lower extremity deep venous system is examined utilizing real time linear array sonog margot with graded compression, color doppler sonography, and spectral doppler. SIDE PERFORMED: left FINDINGS: VESSELS IMAGED: Common Femoral Vein Deep Femoral Vein Greater Saphenous Vein * Femoral Vein Popliteal Vein Small Saphenous Vein * Proximal Calf Veins (* superficial vessels) Left Leg: No evidence of DVT as visualized. Technical limitations due to large amount of soft tissue edema, Color Doppler imaging shows patency of the vessels. Spectral waveforms are within normal limi ts. IMPRESSION: 1. No ultrasound evidence for deep venous thrombosis. 2. Soft tissue edema throughout the leg. [facility], , 04/26/2024 4:21 PM
[2024-04-26 19:21] LABS: Basophils # (A) 0.07 X 10*3/uL (0.00-0.10); Basophils % (A) 0.9 %; Eosinophils # (A) 0.14 X 10*3/uL (0.04-0.35); Eosinophils % (A) 1.7 %; HCT 36.3 % (39.6-50.0); HGB 11.5 g/dL (13.0-17.0); Lymphocytes # (A) 1.43 X 10*3/uL (0.90-5.00); Lymphocytes % (A) 17.6 %; MCH 31.3 pg (27.0-32.0); MCHC 31.7 g/dL (32.0-37.0); MCV 98.9 FL (80.0-97.0); Mean Platelet Volume 10.5 FL (9.5-12.2); Monocytes # (A) 0.57 X 10*3/uL (0.20-1.00); NRBC Per 100 WBC 0 X 10*3/uL (0.00-0.01); Neutrophils # (A) 5.85 X 10*3/uL (1.80-7.70); Neutrophils % (A) 71.9 %; Platelet Count 392 X 10*3/uL (140-440); RBC 3.67 X 10*6/uL (4.40-5.60); RDW 13.7 % (11.5-14.5); WBC 8.13 X 10*3/uL (4.50-10.00)
[2024-04-26 21:01] LABS: ALT 7 U/L (10-49); AST 18 U/L (14-35); Albumin 3.9 g/dL (3.8-4.9); Albumin/Globulin Ratio 1.44 Ratio (1.60-3.17); Alkaline Phosphatase 78 U/L (41-126); BUN/Creat Ratio 18.12 Ratio (12.00-20.00); Blood Urea Nitrogen 14.5 mg/dL (9.0-27.0); Calcium 8.9 mg/dL (8.7-10.3); Carbon Dioxide 16.9 mmol/L (21.6-31.8); Chloride 101 mmol/L (96-109); Globulin 2.7 g/dL (1.6-3.3); Glucose 162 mg/dL (70-110); Potassium 4.7 mmol/L (3.5-5.5); Sodium 135 mmol/L (135-145); Total Bilirubin 1.1 mg/dL (0.3-1.2); Total Protein 6.6 g/dL (6.2-8.2)
== END | disposition home or self-care (01) ==
LOC: RADUSWWP 15:18
PROVIDERS: ATTEND Family Medicine
DX: R22.42 Localized swelling, mass and lump, left lower limb (principal); Z96.652 Presence of left artificial knee joint
CPT/HCPCS: 80053; 85025

== ENCOUNTER → 2024-05-03 | Outpatient (CLI) | payer MEDICARE, OTHER ==
[2024-05-03 19:23] LABS: Basophils # (A) 0.08 X 10*3/uL (0.00-0.10); Basophils % (A) 0.9 %; Eosinophils # (A) 0.28 X 10*3/uL (0.04-0.35); HCT 40.2 % (39.6-50.0); HGB 12.1 g/dL (13.0-17.0); Lymphocytes # (A) 1.31 X 10*3/uL (0.90-5.00); Lymphocytes % (A) 14.2 %; MCH 30.7 pg (27.0-32.0); MCHC 30.1 g/dL (32.0-37.0); Mean Platelet Volume 9.7 FL (9.5-12.2); Monocytes # (A) 0.61 X 10*3/uL (0.20-1.00); Monocytes % (A) 6.6 %; NRBC Per 100 WBC 0 X 10*3/uL (0.00-0.01); Neutrophils # (A) 6.88 X 10*3/uL (1.80-7.70); Neutrophils % (A) 74.3 %; Platelet Count 602 X 10*3/uL (140-440); RBC 3.94 X 10*6/uL (4.40-5.60); RDW 14.6 % (11.5-14.5); WBC 9.25 X 10*3/uL (4.50-10.00)
== END | disposition home or self-care (01) ==
LOC: LABWHC1 12:35
PROVIDERS: ATTEND Family Medicine
DX: D64.9 Anemia, unspecified (principal)
CPT/HCPCS: 36415; 85025

== ENCOUNTER 2024-10-14 07:58 | Emergency (ER) | payer MEDICARE, OTHER ==
--- NOTE | 2024-10-14 08:21 | ED ---
General Adult HPI - General Chief complaint: Extremity Problem,Nontraumatic Stated complaint: Right knee pain Time Seen by Provider: 10/14/24 08:09 Source: patient, RN notes reviewed, old records reviewed Mode of arrival: ambulatory Limitations: no limitations - History of Present Illness Initial comments: 69-year-old male presents for evaluation of right knee pain. Patient is a see working long days. He said osteoarthritis of the bilateral knees and has had a left total knee replacement. He is noted increased pain and swelling in the right knee. Denies specific injury. Denies fever. States he is scheduled for knee replacement in the fall. - Related Data Home Medications Medication Instructions Recorded Confirmed Multivitamins, Thera [Multivitamin 1 tab PO DAILY 08/17/16 04/13/24 (formulary)] Cholecalciferol [Vitamin D3 (25 1,000 unit PO DAILY 01/07/18 04/13/24 Mcg = 1000 Iu)] Cyanocobalamin [Vitamin B-12] 500 mcg PO DAILY 01/07/18 04/13/24 Previous Rx's Medication Instructions Recorded Aspirin 325 mg PO DAILY #30 tab 04/19/24 Ferrous Sulfate [Feosol] 325 mg PO DAILY #30 tab 04/19/24 HYDROcodone/APAP 7.5-325MG [[place]igh 1 each PO Q6HR PRN #28 tab 04/19/24 7.5] Sennosides/Docusate Sodium 2 each PO DAILY PRN #30 tablet 04/19/24 [Senna-S 8.6-50 mg Tablet] Allergies Allergy/AdvReac Type Severity Reaction Status Date / Time sulfamethoxazole Allergy Swelling Verified 10/14/24 08:03 [From Bactrim] trimethoprim [From Bactrim] Allergy Swelling Verified 10/14/24 08:03 Review of Systems ROS Statement: Those systems with pertinent positive or pertinent negative responses have been documented in the HPI. ROS Other: All systems not noted in ROS Statement are negative. Past Medical History Past Medical History: Cancer, Diabetes Mellitus, Hearing Disorder / Deafness Additional Past Medical History / Comment(s): prostate CA, diet controlled diabetes, wears hearing aids History of Any Multi-Drug Resistant Organisms: None Reported Past Surgical History: Bariatric Surgery, Cholecystectomy, Hernia Repair, Pros zuñiga Surgery Additional Past Surgical History / Comment(s): prostactectomy, gastric bypass, "tummy tuck", hernia repair lower abdomen, cataract surgery,. EGD, COLONOSCOPY Past Anesthesia/Blood Transfusion Reactions: No Reported Reaction Additional Past Anesthesia/Blood Transfusion Reaction / Comment(s): no hx blood transfusion. Past Psychological History: Anxiety Smoking Status: Never smoker Past Alcohol Use History: None Reported Past Drug Use History: None Reported - Past Family History Mother Family Medical History: Congestive Heart Failure (CHF) Father Family Medical History: Myocardial Infarction (PA) Additional Family Medical History / Comment(s): alcoholism General Exam Limitations: no limitations General appearance: alert, in no apparent distress Head exam: Present: atraumatic, normocephalic Eye exam: Present: normal appearance, PERRL ENT exam: Present: normal exam Neck exam: Present: normal inspection. Absent: meningismus Respiratory exam: Present: normal lung sounds bilaterally. Absent: respiratory distress, wheezes Cardiovascular Exam: Present: regular rate, normal rhythm GI/Abdominal exam: Present: soft. Absent: distended, tenderness, guarding Extremities exam: Present: tenderness, joint swelling. Absent: full ROM (Right knee: Decreased range of motion secondary to pain, joint effusion, no erythema or warmth), calf tenderness Neurological exam: Present: alert, oriented X3 Psychiatric exam: Present: normal affect, normal mood Skin exam: Present: warm, dry, intact Course Vital Signs 10/14/24 08:00 Temperature 98.6 F Pulse Rate 57 L Respiratory 20 Rate Blood Pressure 155/63 O2 Sat by Pulse 99 Oximetry Medical Decision Making - Medical Decision Making Was pt. sent in by a medical professional or institution (, PA, PACKAGING LINE OPERATOR, urgent care, hospital, or prison...) When possible be specific @ -No Did you speak to anyone other than the patient for history (EMS, parent, family, police, friend...)? What history was obtained from this source @ -No Did you review nursing and triage notes (agree or disagree)? Why? @ -I reviewed and agree with nursing and triage notes Were old charts reviewed (outside hosp., previous admission, EMS record, old EKG, old radiological studies, urgent care reports/EKG's, prison records)? Report findings @ -No old charts were reviewed Differential Musculoskeletal Muscular strain, contusion, ligament sprain, fracture, arthritis, septic arthritis, bursitis, cellulitis, muscle spasm, nerve compression, DVT, arterial occlusion, herpes zoster, electrolyte abnormality, tumor.... This is not meant to be in all inclusive list EKG interpreted by me (3pts min.). @ -As above X-rays interpreted by me (1pt min.). @X-ray of the right knee negative for fracture or dislocation showing osteoarthritis CT interpreted by me (1pt min.). @ -None done U/S interpreted by me (1pt. min.). @ -None done What testing was considered but not performed or refused? (CT, X-rays, U/S, labs)? Why? @ -None What meds were considered but not given or refused? Why? @ -None Did you discuss the management of the patient with other professionals (professionals i.e. , PA, PACKAGING LINE OPERATOR, lab, RT, psych nurse, sexual assault social worker, career technical education teacher, teacher, security public safety officer, patient case coordinator)? Give summary @ -No Was smoking cessation discussed for >3mins.? @ -No Was critical care preformed (if so, how long)? @ -No Were there social determinants of health that impacted care today? How? (Homelessness, low income, unemployed, alcoholism, drug addiction, transportation, low edu. Level, literacy, decrease access to med. care, nursing home, rehab)? @ -No Was there de-escalation of care discussed even if they declined (Discuss DNR or withdrawal of care, Hospice)? DNR status @ -No What co-morbidities impacted this encounter? (DM, HTN, Smoking, COPD, CAD, Cancer, CVA, ARF, Chemo, Hep., AIDS, mental health diagnosis, sleep apnea, morbid obesity)? @Prediabetic, osteoarthritis, left total knee replacement Was patient admitted / discharged? Hospital course, mention meds given and route, prescriptions, significant lab abnormalities, going to OR and other pertinent info. 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 Patient is active and works long days doing physical work. He has painful swollen right knee. No fever, no systemic symptoms. No calf tenderness. Distal pulses intact. Range of motion limited by pain. X-ray showing osteoarthritis without acute abnormality. Patient will ice, rest extremity and follow-up with his orthopedic surgeon Dr. Jackson. Patient will monitor for further swelling, increased pain or fever. Undiagnosed new problem with uncertain prognosis? @ -No Drug Therapy requiring intensive monitoring for toxicity (Heparin, Nitro, Insulin, Cardizem)? @ -No Were any procedures done? @ -No Diagnosis/symptom? @Right knee pain, osteoarthritis Acute, or Chronic, or Acute on Chronic? @ -[Acute on chronic Uncomplicated (without systemic symptoms) or Complicated (systemic symptoms)? @ -Default Side effects of treatment? @ -No Exacerbation, Progression, or Severe Exacerbation? @ -No Poses a threat to life or bodily function? How? (Chest pain, USA, PA, pneumonia, PE, COPD, DKA, ARF, appy, cholecystitis, CVA, Diverticulitis, Homicidal, Suicidal, threat to staff... and all critical care pts) @ -No Disposition Clinical Impression: Arthritis of knee Disposition: HOME SELF-CARE Condition: Fair Instructions (If sedation given, give patient instructions): Osteoarthritis (ED), Knee Pain (ED) Is patient prescribed a controlled substance at d/c from ED?: No Referrals: Marcelo Del Rosario DO [Primary Care Provider] - 1-2 days Osman Jackson MD [STAFF PHYSICIAN] - 1-2 days Time of Disposition: 08:32
--- NOTE | 2024-10-14 08:55 | XR ---
EXAMINATION TYPE: XR knee complete RT DATE OF EXAM: 10/14/2024 8:30 AM COMPARISON: None CLINICAL INDICATION: Male, 69 years old with history of knee swelling, pain; PHH, pain TECHNIQUE: XR knee complete RT 4 views submitted. FINDINGS: No evidence of any acute osseous pathology or soft tissue swelling. Tricompartmental oste ophyte formation involving the femoral condyles, tibial plateau and patella. Moderate joint space ridge rowing. Atherosclerosis of the arterial vasculature. Benign-appearing calcified lesion in the prep room supervisor ior medial proximal leg. IMPRESSION: 1. No acute osseous pathology. 2. Moderate to severe tricompartmental osteoarthritic changes. [facility], , 10/14/2024 8:53 AM
[2024-10-14] MEDS: KETOROLAC 15 MG/ML 1 ML VIAL IM STA (09:17)
[2024-10-14 10:16] VITALS: BP 155/63; PULSE 57; RESP 20; TEMP 98.6
== END 2024-10-14 09:28 | disposition home or self-care (01) ==
LOC: EC 07:58
DX: M17.0 Bilateral primary osteoarthritis of knee (principal); Z88.2 Allergy status to sulfonamides
CPT/HCPCS: 73562; 99283; 96372; J1885